=== PATIENT | male | born 1985 | race Caucasian/White ===

== ENCOUNTER 2018-06-24 19:07 | Emergency (ER) | payer OTHER ==
[2018-06-24] MEDS: HYDROCODONE/APAP (10/325) TAB PO (21:01)
== END 2018-06-24 22:47 | disposition home or self-care (01) ==
LOC: FTE 19:07
DX: S59.901A Unspecified injury of right elbow, initial encounter (principal); W50.0XXA Accidental hit or strike by another person, initial encounter; Y92.9 Unspecified place or not applicable
CPT/HCPCS: 29105; 73080-RT; 99283-25